=== PATIENT | female | born 1975 | race Caucasian/White ===

== ENCOUNTER 2020-10-29 17:44 | Emergency (ER) | payer MEDICAID ==
[~2020-10-29] VITALS: Ht 165.1 cm; Wt 57.5 kg
[~2020-10-29 17:44] MED LIST: DOCU-131 PO; HYDR25TA6 PO; LEVO100T PO; LEVO50TA5 PO; LEVO750T6 PO; METR500T PO; OXYC5TAB2 PO; OXYC5TAB98 PO; PANT40TA6 PO; Senna/Docusate PO
[2020-10-29] MEDS ORDERED: ONDANSETRON 2MG/ML, 2ML IVPush ONE (18:30)
[2020-10-29] MEDS ORDERED: SODIUM CHLORIDE FLUSH 10ML SYR IVF ONE (18:30)
[2020-10-29] MEDS ORDERED: MORPHINE SULFATE 4 MG/ML, 1ML ONE ×2 (18:39→19:54)
[2020-10-29] MEDS ORDERED: ONDANSETRON 2MG/ML, 2ML ONE (18:39)
[2020-10-29] MEDS: MORPHINE SULFATE 4 MG/ML, 1ML IVPush PRN ×2 (18:41→20:05)
--- NOTE | 2020-10-29 18:45 | NUR ---
PT MEDICATED PER EMAR FOR LLQ ABD PAIN 05/29. PT REPORTS ONLY HOME MEDS IS COLACE AND OXYCODONE. MED REC UPDATED. PT RESTING ON GURNEY W/ CALL LIGHT IN REACH AND SIDE RAILS UPX2. ROSALIA SCHMIDT.
[2020-10-29 18:49] LABS: INTERNATIONAL NORMALIZED RATIO 1.75 (0.93-1.1); PROTHROMBIN TIME 18.5 Seconds (9.6-11.5)
[2020-10-29 18:56] LABS: ALANINE AMINOTRANSFERASE 13 U/L (12-78); ALBUMIN 2.1 g/dL (3.4-5.0); ANION GAP 6 mmol/L (5-15); CALCIUM 8.3 mg/dL (8.5-10.1); CHLORIDE 105 mmol/L (98-107); CREATININE 0.56 mg/dL (0.55-1.02)
[2020-10-29 18:58] LABS: ALKALINE PHOSPHATASE 88 U/L (45-117); BILIRUBIN,TOTAL 7.9 mg/dL (0.2-1.0); TOTAL PROTEIN 5.4 g/dL (6.4-8.2)
--- NOTE | 2020-10-29 19:08 | NUR ---
REPORT GIVEN TO DIOGO ESTRADA. PT RESTING ON GURNEY W/ CALL LIGHT IN REACH AND SIDE RAILS UPX2. RESP EVEN AND UNLABORED, KINGN. AWAITING ADMIT.
[2020-10-29 19:13] LABS: MEAN CORPUSCULAR HGB CONC 32.8 g/dL (32.4-35.8); MEAN PLATELET VOLUME 8.8 fL (7.4-10.4); PLATELET COUNT 187 x10^3/uL (130-400); RED BLOOD COUNT 2.76 x10^6/uL (3.82-5.3)
[2020-10-29 19:47] LABS: MD YES
--- NOTE | 2020-10-29 19:48 | NUR ---
LAB CALLED TO EXPEDITE CBC RESULTS PATIENT UPDATED ON ESTIMATED POC
[2020-10-29 20:04] LABS: BAND#(MANUAL) 0.21 x10^3/uL; BANDS%(MANUAL) 3 % (0-7); LYMPH#(MANUAL) 0.48 x10^3/uL (1-3.4); LYMPHS% (MANUAL) 7 % (22-44); MONOS#(MANUAL) 0.21 x10^3/uL (0.3-2.7); MONOS% (MANUAL) 3 % (2-9); SEGS% (MANUAL) 87 % (42-75)
[2020-10-29 20:05] LABS: ANISOCYTOSIS 2+
[2020-10-29 20:06] LABS: HYPOCHROMIA 1+; MICROCYTOSIS 1+; OVALOCYTES 1+; POLYCHROMASIA 1+
[2020-10-29 20:08] LABS: <PLATELET ESTIMATE> ADEQUATE; <PLT MORPHOLOGY> NORMAL PLT MORPH
[2020-10-29] MEDS ORDERED: IRON1TAB60 PO (20:32)
[2020-10-29] MEDS ORDERED: LEVO50TA PO (20:32)
--- NOTE | 2020-10-29 20:35 | NUR ---
With reassessment pain improved to 2/10 Updated on estimated poc (pending erp admit order). to remain npo
--- NOTE | 2020-10-29 22:10 | NUR ---
scientific writer to radiology to ask us tech to expedite exam
--- NOTE | 2020-10-29 22:30 | NUR ---
ultrasound to bedside
--- NOTE | 2020-10-29 22:55 | NUR ---
Report from SEAN Peña. Assumed care.
--- NOTE | 2020-10-29 23:00 | NUR ---
Report to Alexandria ESTRADA
[2020-10-29] MEDS ORDERED: HYDROcodone/APAP 5/325 TABLET ONE (23:51)
[2020-10-29] MEDS ORDERED: LIDOCAINE-MPF 1%, 5ML ONE (23:51)
--- NOTE | 2020-10-29 23:57 | NUR ---
Pt eating sandwich per MD approval. [place] given per eMAR. Pt ambulating to bathroom. Updated pt on plan to do paracentesis. Pt will not be admitted.
[2020-10-30] MEDS ORDERED: LIDOCAINE 1%, 10ML INFIL ONE
[2020-10-30] MEDS ORDERED: HYDROcodone/APAP 5/325 TABLET PO ONE
--- NOTE | 2020-10-30 00:56 | NUR ---
Paracentesis performed by ED provider in ED. 2.5L removed.
[2020-10-30 00:57] VITALS: BP 98/62
--- NOTE | 2020-10-30 01:29 | NUR ---
Pt reports her ride is on the way and will be here between 0230 and 0300.
== END 2020-10-30 02:27 | disposition home or self-care (01) ==
LOC: ED 18:20
DX: K70.31 Alcoholic cirrhosis of liver with ascites (principal); R94.31 Abnormal electrocardiogram [ECG] [EKG]
CPT/HCPCS: 36415; 49083; 71045; 76700; 80053; 83690; 85025; 85610; 93005; 96374; 96375; 96376; 99285; J2270; J2405; J3490